=== PATIENT | male | born 1990 | race Caucasian/White ===

== ENCOUNTER 2017-09-21 14:43 | Emergency (ER) | payer OTHER ==
[2017-09-21 15:12] VITALS: BP 123/70
--- NOTE | 2017-09-21 15:27 | UC ---
Complaint Male HPI - HPI Summary HPI Summary: 27 yo male presents with pressure in perineal area for 1 month. He tells me that about 1.5 months ago he had sexual intercourse with a new partner. About a week after that he was working long shifts at work and admits to holding his urine for long periods of time. Does have some burning with urination. Doesn't think his sexual partner had anything STDs. Denies fever, chills, abdominal pain , n/v/d/c, flank pain, penile discharge, testicular pain. - History of Current Complaint Chief Complaint: UCGU Stated Complaint: URINARY COMPLAINT Time Seen by Provider: 09/21/17 15:22 Hx Obtained From: Patient Onset/Duration: Gradual Onset Severity Initially: Mild Severity Currently: Mild Pain Intensity: 2 Pain Scale Used: 0-10 Numeric - Allergies/Home Medications Allergies/Adverse Reactions: Allergies Allergy/AdvReac Type Severity Reaction Status Date / Time amoxicillin [From Augmentin] Allergy Intermediate See Comment Verified 09/21/17 15:13 clavulanic acid Allergy Intermediate See Comment Verified 09/21/17 15:13 [From Augmentin] PMH/Surg Hx/FS Hx/Imm Hx - Additional Past Medical History Additional PMH: None Previously Healthy: Yes - Surgical History Surgical History: None - Family History Known Family History: Positive: None - Social History Occupation: Employed Full-time Lives: With Family Alcohol Use: Weekly Substance Use Type: Marijuana Substance Use Comment - Amount & Last Used: occasional Smoking Status (MU): Former Smoker Review of Systems Constitutional: Negative Skin: Negative Respiratory: Negative Cardiovascular: Negative Gastrointestinal: Negative Genitourinary: Dysuria Motor: Negative Neurological: Negative Psychological: Negative All Other Systems Reviewed And Are Negative: Yes Physical Exam - Summary Physical Exam Summary: GENERAL: NAD. WDWN. No pain distress. SKIN: No rashes, sores, lesions, or open wounds. NECK: Supple. Nontender. No lymphadenopathy. CHEST: CTAB. No r/r/w. No accessory muscle use. Breathing comfortably and in no distress. CV: RRR. Without m/r/g. Pulses intact. Brisk cap refill. ABDOMEN: Soft. NTTP. No distention or guarding. No organomegaly. No CVA tenderness. Bowel sounds present NEURO: Alert. CN II-XII grossly intact. PSYCH: Age appropriate behavior. Triage Information Reviewed: Yes Vital Signs: Initial Vital Signs Temp 98.2 F 09/21/17 15:07 Pulse 67 09/21/17 15:07 Resp 16 09/21/17 15:07 BP 123/70 09/21/17 15:07 Pulse Ox 100 09/21/17 15:07 Laboratory Tests 09/21/17 15:40 POC Urine Color Yellow POC Urine Clarity Clear POC Urine pH 6.0 POC Ur Specif Dodson 1.025 POC Urine Protein Negative POC Ur Glucose (UA) Negative POC Urine Ketones Negative POC Urine Blood Negative POC Urine Nitrite Negative POC Urine Bilirubin Negative POC Urine Urobilinogen 0.2 POC U Leukocyte Esteras Negative Complaint Male Course/Dx - Course Course Of Treatment: Will defer prostate exam as potential bacterial prostatitis could spread infection. UA negative, but will send for GC and chlamydia testing. Rx for cipro for suspect prostatitis - Differential Dx/Diagnosis Provider Diagnoses: Prostatitis Discharge - Sign-Out/Discharge Documenting (check all that apply): Patient Departure - Discharge Plan Condition: Stable Disposition: HOME Prescriptions: Ciprofloxacin HCl [Cipro] 500 mg PO BID #28 tablet Patient Education Materials: Prostatitis (ED) Referrals: No Primary Care Phys,NOPCP [Primary Care Provider] - Additional Instructions: If you develop a fever, shortness of breath, chest pain, new or worsening symptoms - please call your PCP or go to the ED. - Billing Disposition and Condition Condition: STABLE Disposition: Home
== END 2017-09-21 15:59 | disposition home or self-care (01) ==
LOC: UCEAST 14:43
DX: N41.9 Inflammatory disease of prostate, unspecified (principal); Z88.0 Allergy status to penicillin; Z87.891 Personal history of nicotine dependence
CPT/HCPCS: 81003; 87491; 87591; 99212; G0463

== ENCOUNTER 2017-12-29 12:38 | Emergency (ER) | payer OTHER ==
[2017-12-29 12:57] VITALS: BP 116/71
--- NOTE | 2017-12-29 13:36 | UC ---
Abdominal Pain Male HPI - HPI Summary HPI Summary: PATIENT HAS HAD ABOUT 1 MONTH OF INTERMITTENT LOOSE STOOLS AND CONSTIPATION. SOME MILD ABDOMINAL PAIN ASSOCIATED WITH IT BUT HE IS MOSTLY CONCERNED ABOUT HIS RECENT CHANGE IN BOWEL HABITS. HE DENIES NAUSEA/VOMITING. NO FEVER OR BLOOD PER RECTUM. NO FAMILY HISTORY OF COLON CANCER. NO RECENT TRAVEL. DENIES DRINKING UNTREATED WATER. - History of Current Complaint Chief Complaint: UCAbdominalPain Stated Complaint: ABD PAIN Time Seen by Provider: 12/29/17 13:16 Hx Obtained From: Patient Onset/Duration: Gradual Onset, Lasting Weeks, Still Present Timing: Constant Severity Initially: Moderate Severity Currently: Moderate Pain Intensity: 5 Pain Scale Used: 0-10 Numeric Location: Diffuse Radiates: No Aggravating Factor(s): Nothing Alleviating Factor(s): Nothing Associated Signs And Symptoms: Positive: Constipation, Diarrhea - Allergies/Home Medications Allergies/Adverse Reactions: Allergies Allergy/AdvReac Type Severity Reaction Status Date / Time amoxicillin [From Augmentin] Allergy Intermediate See Comment Verified 12/29/17 12:57 clavulanic acid Allergy Intermediate See Comment Verified 12/29/17 12:57 [From Augmentin] Home Medications: Home Medications NK [No Home Medications Reported] 12/29/17 [History Confirmed 12/29/17] PMH/Surg Hx/FS Hx/Imm Hx Previously Healthy: Yes - Surgical History Surgical History: None - Family History Known Family History: Positive: None Family History: NO FAM HX COLON CANCER - Social History Alcohol Use: Weekly Substance Use Type: Marijuana Substance Use Comment - Amount & Last Used: occasional Smoking Status (MU): Former Smoker Review of Systems Constitutional: Negative Respiratory: Negative Cardiovascular: Negative Gastrointestinal: Diarrhea Genitourinary: Dysuria, Frequency, Urgency All Other Systems Reviewed And Are Negative: Yes Physical Exam Triage Information Reviewed: Yes Appearance: Well-Appearing, No Pain Distress, Well-Nourished Vital Signs: Initial Vital Signs Temp 98.9 F 12/29/17 12:53 Pulse 61 12/29/17 12:53 Resp 17 12/29/17 12:53 BP 116/71 12/29/17 12:53 Pulse Ox 99 12/29/17 12:53 Vital Signs Reviewed: Yes Eyes: Positive: Conjunctiva Clear ENT: Positive: Hearing grossly normal Neck: Positive: Supple Respiratory Exam: Normal Cardiovascular Exam: Normal Abdomen Description: Positive: Nontender, Soft. Negative: CVA Tenderness (R), CVA Tenderness (L), Distended, Guarding Bowel Sounds: Positive: Present Musculoskeletal: Positive: No Edema Neurological: Positive: Alert Psychological: Positive: Age Appropriate Behavior Skin: Negative: rashes Abd Pain Male Course/Dx - Course Course Of Treatment: STOOL KIT SENT WITH PATIENT. ORDER FOR OVA AND PARASITE, STOOL CULTURE, E. COLI, C. DIFF, LACTOFERRIN. ADVISED TO KEEP A SYMPTOM DIARY TO SEE IF HE CAN IDENTIFY ANY TRIGGERING FACTORS. ADVISED TO STAY WELL HYDRATED. FOLLOW-UP WITH GI. - Differential Dx/Clinical Impression Provider Diagnoses: CHANGE IN BOWEL HABITS Discharge - Sign-Out/Discharge Documenting (check all that apply): Patient Departure All imaging exams completed and their final reports reviewed: No Studies - Discharge Plan Condition: Stable Disposition: HOME Patient Education Materials: Abdominal Pain (ED) Referrals: No Primary Care Phys,NOPCP [Primary Care Provider] - Additional Instructions: UNCLEAR CAUSE FOR THE CHANGE IN YOUR BOWEL HABITS. KEEP A SYMPTOM DIARY TO SEE IF YOU CAN IDENTIFY A TRIGGER. BE SURE TO STAY WELL-HYDRATED. BRING A STOOL SAMPLE IN FOR TESTING. FOLLOW-UP WITH GI FOR FURTHER EVALUATION. GO TO THE ED WITHOUT FAIL IF YOU DEVELOP WORSENING PAIN, NAUSEA, BLOOD PER RECTUM, FEVER OR ANY OTHER CONCERNING SYMPTOMS. CALL THE NUMBER BELOW FOR ASSISTANCE IN ESTABLISHING WITH A PCP An additional resource available to assist in finding the appropriate physician for your health care needs is the [facility] (Naomy Johnson). You may contact them by calling [phone]. [facility] Address: [address] [place] [address] - Billing Disposition and Condition Condition: STABLE Disposition: Home
== END 2017-12-29 13:38 | disposition home or self-care (01) ==
LOC: UCEAST 12:38
DX: R19.4 Change in bowel habit (principal); Z88.1 Allergy status to other antibiotic agents; Z88.0 Allergy status to penicillin; Z87.891 Personal history of nicotine dependence
CPT/HCPCS: 99211; G0463

== ENCOUNTER → 2018-08-12 10:16 | Day surgery (SDC) | payer OTHER ==
[~2018-08-12 10:16] MED LIST: Buffered Lidocaine 1% SYRIN* 1 ML/SYRINGE INTRADERM ONE; Bupivacaine 0.5% W/EPI SDV* 30 ML VIAL ONE; Dexamethasone IV* 4 MG/ML 1 ML (4 MG) IV SLOW PU ONE; Dexamethasone IV* 4 MG/ML 1 ML (4 MG) ONE; Famotidine IV* 10 MG/ML 2 ML (20 mg) IV ONE; Famotidine IV* 10 MG/ML 2 ML (20 mg) ONE; HYDROcodone/ACETAMIN 5-325 MG* 1 TAB PO PRN; KETAMINE HCL* 50 MG/ML 10 ML VIAL ONE; Ketorolac INJ* 30 MG/ML 1 ML VIAL IV PRN; Lactated Ringers 1000 ML Bag* 1,000 ML IV SCH; Lidocaine 1% INJ* 10 MG/ML 30 ML SDV ONE; Lidocaine 2% JELLY* 20 ML (for OR use) ONE; Midazolam* 1 MG/ML 2 ML VIAL (2 MG) ONE; Midazolam* 1 MG/ML 5 ML VIAL (5 MG) ONE; Naloxone* 0.4 MG/ML 1 ML VIAL IV PRN; Onabotulinimtoxina 100 UNITS* VIAL ONE; Ondansetron INJ* 2 MG/ML VIAL IV PRN; Propofol* 10 MG/ML 20 ML BTL ONE; fentaNYL* 50 MCG/ML 2 ML VIAL (100 MCG VIAL) IV PRN; fentaNYL* 50 MCG/ML 2 ML VIAL (100 MCG VIAL) ONE; oxyCODONE/Acetamin 5/325 MG* TAB PO PRN
--- NOTE | 2018-08-12 12:41 | BRIEFOPN ---
Brief Operative Note - Surgery Procedures: Procedures OPERATIVE REPORT Pre-op: Chronic anal fissure Post-Op: No fissure noted, internal hemorrhoids Procedure:Anorectal exam under anesthesia Surgeon: MD Sheldon Asst: none Anes: Local with MAC_Dr. Clemente IVF:min EBL:min Specimen:none Drain: none Wound: N/A To PACU
[2018-08-12 14:11] VITALS: BP 109/63
--- NOTE | 2018-08-12 18:29 | OP ---
DATE OF OPERATION: 08/12/18 [facility] DATE OF : 89 SURGEON: Rylan Chung MD. BULL RIVETER: None. ANESTHESIOLOGIST: Dr. Clemente. ANESTHESIA: Local with MAC. PRE-OP DIAGNOSES: 1. Chronic anal pain. 2. Chronic anal fissure. POST-OP DIAGNOSES: 1. Chronic anal pain. 2. No finding consistent with anal fissure. 3. Prominent anal canal crypts, but no significant hemorrhoidal disease or other pathology noted. OPERATIVE PROCEDURE: Exam under anesthesia. ESTIMATED BLOOD LOSS: None. SPECIMENS: None. COMPLICATIONS: None. DRAINS: None. WOUND CLASSIFICATION: Not applicable. FINDINGS: The patient had some more prominent anal crypts in the posterior portion of the anal canal, but I noted no evidence of fissure, fistula, abscess , or mass. The distal rectal mucosa appeared to be unremarkable. There was no internal hemorrhoidal disease elsewhere around the circumference of the anal canal. DESCRIPTION OF PROCEDURE: Written informed consent was obtained. The patient was taken to the operating room. Sequential compression devices and a warming blanket were applied. He was placed in the prone jackknife position. Intravenous sedation was administered. Time-out verification was completed. A perianal block using 1% lidocaine mixed with 0.25% Marcaine was infiltrated in the anal verge in the usual fashion. Digital rectal exam was then performed, which showed some increased tone, but no evidence of mass or blood. Careful evaluation of the perianal skin noted no evidence of obvious polyp, skin lesions, fistulous openings, abscess, or excoriation. There was no obvious anal fissure. Using the retractors, the anal canal was carefully evaluated. I noted no evidence of an anal fissure anywhere in the anal canal. There were some more prominent deeper anal crypts at the anorectal junction in the posterior aspect of the anal canal. These were probed and did not appear to be fistulous openings or abscesses. There was no significant hemorrhoidal disease noted. The anoderm in the posterior aspect of the anal canal was somewhat more vascular , however, but did not bleed easily, did not distend or appear to be significantly abnormal. With these findings in mind, no further intervention was performed. The patient tolerated the procedure well and was taken to recovery room in stable condition. [id number]/[facility] #: [id number] [facility]
== END | disposition home or self-care (01) ==
LOC: OR 10:16
PROVIDERS: ATTEND Surgery
DX: K62.89 Other specified diseases of anus and rectum (principal); Z87.891 Personal history of nicotine dependence
CPT/HCPCS: J0585; J1100; J2250; J2704; J3010

== ENCOUNTER 2018-08-13 19:53 | Emergency (ER) | payer OTHER ==
--- NOTE | 2018-08-13 20:06 | ED ---
Syncope/Near Syncope - HPI Summary HPI Summary: This patient is a 28 year old M brought in by ambulance to [facility] due to a syncopal event that occurred prior to arrival. Patient was out to dinner when he suddenly lost consciousness after finishing his meal. Denies associated trauma. Reports diarrhea. Denies vomiting and nausea. Denies regular medications. Denies recreational drug use. Denies recent sleep issues. - History Of Current Complaint Time Seen by Provider: 08/13/18 19:56 Hx Obtained From: Patient Onset/Duration: Sudden Onset, Lasting Minutes Associated Head Trauma: No Alleviating Factor(s): Spontaneous Resolution Associated Signs And Symptoms: Diarrhea - Allergies/Home Medications Allergies/Adverse Reactions: Allergies Allergy/AdvReac Type Severity Reaction Status Date / Time amoxicillin [From Augmentin] Allergy Intermediate See Comment Verified 08/12/18 11:04 clavulanic acid Allergy Intermediate See Comment Verified 08/12/18 11:04 [From Augmentin] PMH/Surg Hx/FS Hx/Imm Hx Endocrine/Hematology History: Denies: Hx Diabetes Cardiovascular History: Denies: Hx Hypertension - Surgical History Hx Anesthesia Reactions: No - Family History Known Family History: Positive: Other - NEGATIVE: colon CA - Social History Alcohol Use: Weekly Alcohol Amount: FEW DRINKS/ MONTH Hx Substance Use: Yes Substance Use Type: Reports: Marijuana Substance Use Comment - Amount & Last Used: NOT RECENTLY, WILL NOT USE BEFORE SURGERY Hx Tobacco Use: Yes Smoking Status (MU): Former Smoker Amount Used/How Often: 1PPD 4YRS Have You Smoked in the Last Year: No Review of Systems Constitutional: Negative - trauma Positive: Diarrhea. Negative: Vomiting, Nausea Positive: Syncope All Other Systems Reviewed And Are Negative: Yes Physical Exam - Summary Physical Exam Summary: VITAL SIGNS: Reviewed. GENERAL: Patient is a well-developed and nourished male who is lying comfortable in the stretcher. Patient is not in any acute respiratory distress. HEAD AND FACE: No signs of trauma. No ecchymosis, hematomas or skull depressions. No sinus tenderness. EYES: PERRLA, EOMI x 2, No injected conjunctiva, no nystagmus. EARS: Hearing grossly intact. Ear canals and tympanic membranes are within normal limits. MOUTH: Oropharynx within normal limits. NECK: Supple, trachea is midline, no adenopathy, no JVD, no carotid bruit, no c- spine tenderness, neck with full ROM CHEST: Symmetric, no tenderness at palpation LUNGS: Clear to auscultation bilaterally. No wheezing or crackles. CVS: Regular rate and rhythm, S1 and S2 present, no murmurs or gallops appreciated. ABDOMEN: Soft, non-tender. No signs of distention. No rebound no guarding, and no masses palpated. Bowel sounds are normal. EXTREMITIES: FROM in all major joints, no edema, no cyanosis or clubbing. NEURO: Alert and oriented x 3. No acute neurological deficits. Speech is normal and follows commands. SKIN: Dry and warm Triage Information Reviewed: Yes Vital Signs Reviewed: Yes Diagnostics - Laboratory Result Diagrams: 08/13/18 20:24 08/13/18 20:24 Lab Statement: Any lab studies that have been ordered have been reviewed, and results considered in the medical decision making process. - EKG 2022 Cardiac Rate: Bradycardia - 48 BPM EKG Rhythm: Sinus Bradycardia Summary of EKG Findings: Normal axis. Normal interval. No ischemic changes. Course/Dx Course Of Treatment: 28 year old M brought in by ambulance to [facility] due to a syncopal event that occurred prior to arrival. Patient was out to dinner when he suddenly lost consciousness after finishing his meal. Denies associated trauma. Denies recreational drug use. EKG reveals NSR at 48 BPM with a normal axis, normal interval, and no ischemic changes. Patient is given 1000mls of IVF. Patient is instructed not to drive or participate in sports until he follows up with a manager group home. Patient is agreeable with this plan. - Diagnoses Provider Diagnoses: Syncope Discharge - Sign-Out/Discharge Documenting (check all that apply): Patient Departure - discharge Patient Received Moderate/Deep Sedation with Procedure: No - Discharge Plan Condition: Stable Disposition: HOME Patient Education Materials: Syncope (ED) Referrals: Manuel Mcknight DO [Medical Doctor] - 2 Days () Additional Instructions: Follow up with a manager group home regarding your visit today. Do not drive or participate in sports until cleared by manager group home. RETURN TO THE EMERGENCY DEPARTMENT FOR CHANGING OR WORSENING SYMPTOMS. - Billing Disposition and Condition Condition: STABLE Disposition: Home - Attestation Statements Document Initiated by Scribe: Yes Documenting Scribe: Anuradha Rust Provider For Whom Scribe is Documenting (Include Credential): Jailene Mendes MD Scribe Attestation: I, Anuradha Rust, scribed for Jailene Mendes MD on 08/13/18 at 2310. Scribe Documentation Reviewed: Yes Provider Attestation: The documentation as recorded by the scribeAnuradha accurately reflects the service I personally performed and the decisions made by meMargaret MD Status of Scribe Document: Viewed
[2018-08-13] MEDS ORDERED: NS 0.9% 1000 ML** 1,000 ML IV ONE (20:13)
[2018-08-13 20:29] LABS: Hematocrit 43 % (42-52); Hemoglobin 14.3 g/dL (14.0-18.0); Mean Corpuscular Volume 88 fL (80-94); Red Blood Count 4.86 10^6 /uL (4.18-5.48); White Blood Count 12.2 10^3/uL (3.5-10.8)
[2018-08-13 20:30] LABS: ABS Basophils 0.1 10^3/ul (0-0.2); ABS Eosinophils 0.1 10^3/ul (0-0.6); ABS Lymphocytes 3.3 10^3/ul (1.0-4.8); ABS Neutrophils 7.8 10^3/ul (1.5-7.7); Eosinophil % 0.5 %; Mean Corpuscular HGB Conc 33 g/dL (31-36); Mean Corpuscular Hemoglobin 30 pg (27-31); Mean Platelet Volume 7.7 fL (7.4-10.4); Platelet Count 305 10^3/uL (150-450); Red Cell Distribution Width 13 % (10-15)
[2018-08-13 20:47] LABS: Albumin 4.1 g/dL (3.2-5.2); Albumin/Globulin Ratio 1.5 (1-3); BUN/Creatinine Ratio 18.3 (8-20); Calcium 9.5 mg/dL (8.6-10.3); EGFR African American 83.7 (>60); EGFR Non-African American 69.2 (>60); Globulin 2.7 g/dL (2-4); Magnesium 2.1 mg/dL (1.9-2.7); Potassium 3.5 mmol/L (3.5-5.0); Total Bilirubin 0.3 mg/dL (0.2-1.0); Total Protein 6.8 g/dL (6.4-8.9)
[2018-08-13 21:40] VITALS: BP 125/71
== END 2018-08-13 21:40 | disposition home or self-care (01) ==
LOC: ED 19:53
DX: R55 Syncope and collapse (principal); R19.7 Diarrhea, unspecified; Z88.0 Allergy status to penicillin; Z87.891 Personal history of nicotine dependence
CPT/HCPCS: 36415; 80053; 83735; 84484; 85025; 93005; 99282